=== PATIENT | female | born 1960 | race Caucasian/White ===

== ENCOUNTER 2022-02-09 13:00 | Inpatient (IN) | payer SELFPAY ==
[2022-02-09 14:02] LABS: #Basophils 0.1 thou/uL (0.0-0.2); #Eosinphils 0.2 thou/uL (0.0-0.7); #Monocytes 1.1 thou/uL (0.11-0.59); #Neutrophils 9.8 thou/uL (1.40-6.50); %Basophils 0.4 % (0.0-1.0); %Eosinophils 1.5 % (0.0-10.0); %Lymphocytes 26.4 % (21.0-51.0); %Monocytes 7.2 % (0.0-10.0); %Neutrophils 64.5 % (42.0-75.0); Hemoglobin 13.9 g/dL (12.0-16.0); Mean Corpuscular HGB CONC 32.2 g/dL (32.0-36.0); Mean Corpuscular Hemoglobin 32.2 pg (27.0-31.0); Mean Corpuscular Volume 99.8 fL (78.0-98.0); Mean Platelet Volume 7.8 fL (7.4-10.4); Platelet Count 331 thou/uL (130-400); RBC Distribution Width 12.9 % (11.5-14.5); Red Blood Cell (RBC) Count 4.31 mill/uL (4.20-5.40); White Blood Cell (WBC) Count 15.2 thou/uL (4.8-10.8)
[2022-02-09 14:21] LABS: ALT (SGPT) 18 U/L (8-55); AST (SGOT) 22 U/L (5-34); Albumin 3.6 g/dL (3.4-4.8); Alkaline Phosphatase 125 U/L (40-110); Anion Gap 14 mmol/L (10-20); BUN (Urea Nitrogen) 12 mg/dL (9.8-20.1); Bilirubin, Total 0.6 mg/dL (0.2-1.2); Calc. Creatinine Clearance 0 mL/min (70-130); Calcium 9.2 mg/dL (7.8-10.44); Carbon Dioxide 27 mmol/L (23-31); Chloride 100 mmol/L (98-107); Globulin 4.2 g/dL (2.4-3.5); Glucose 99 mg/dL (80-115); Lipase 16 U/L (8-78); Magnesium 1.8 mg/dL (1.6-2.6); Potassium 4.1 mmol/L (3.5-5.1); Protein, Total 7.8 g/dL (5.8-8.1); Sodium 137 mmol/L (136-145)
[2022-02-09 17:26] LABS: Bacteria/HPF 4+ HPF (None Seen); Bilirubin Negative (Negative); Blood, Urine Negative (Negative); Clarity Turbid (Clear); Glucose, Urine (Dipstick) Normal (Negative); Ketone, Urine Trace mg/dL (Negative); Leukocyte 250 Leu/uL (Negative); Nitrite 2+ (Negative); Protein, Urine (Dipstick) 10 mg/dL (Neg-Trace); RBC/HPF 0-3 HPF (0-3); Specific Gravity, Urine 1.019 (1.002-1.036); WBC/HPF 21-50 HPF (0-3)
[2022-02-09 22:15] VITALS: BMI 30.7
[2022-02-09] MEDS ORDERED: Aspirin 81 mg Enteric Coated Tablet PO SCH (23:30)
[2022-02-10 05:26] LABS: Cardiac Risk 5.6 (Less than 4.5)
[2022-02-10] MEDS: Aspirin 81 mg Enteric Coated Tablet PO SCH (09:54)
[2022-02-10] MEDS: PARoxetine 20 MG TAB PO SCH (09:55)
[2022-02-10] MEDS ORDERED: Iopamidol-370 76% 500 ML 1 ML ONE (11:53)
[2022-02-10 11:59] LABS: SARS-CoV-2 PCR by NAA Not Detected (NotDetected)
[2022-02-10] MEDS: cefTRIAXone\\ROCEPHIN 1 GM in Sodium Chloride 0.9% 100 ML IVPB SCH (15:26)
[2022-02-10] MEDS: Lorazepam 2 MG/ML VIAL SLOW IVP SCH (17:40)
[2022-02-10] MEDS: Dextrose 5 % And 0.9 % NaCl 1,000 ML IV SCH (18:09)
[2022-02-10] MEDS: Atorvastatin Calcium 40 MG TAB PO SCH (20:45)
[2022-02-10] MEDS: Melatonin 3 MG TAB PO PRN (20:45)
[2022-02-10] MEDS: Amlodipine 10 MG TAB PO SCH (20:46)
[2022-02-10] MEDS: Metoprolol Tartrate 50 MG TAB PO SCH (20:47)
[2022-02-11] MEDS: Dextrose 5 % And 0.9 % NaCl 1,000 ML IV SCH ×3 (04:17→18:28)
[2022-02-11 05:29] LABS: #Basophils 0.1 thou/uL (0.0-0.2); #Eosinphils 0.5 thou/uL (0.0-0.7); #Monocytes 1.1 thou/uL (0.11-0.59); #Neutrophils 6.4 thou/uL (1.40-6.50); %Basophils 1.2 % (0.0-1.0); %Eosinophils 4.3 % (0.0-10.0); %Lymphocytes 32.7 % (21.0-51.0); %Monocytes 9.2 % (0.0-10.0); %Neutrophils 52.7 % (42.0-75.0); Hemoglobin 14.3 g/dL (12.0-16.0); Mean Corpuscular HGB CONC 32.2 g/dL (32.0-36.0); Mean Corpuscular Volume 99.5 fL (78.0-98.0); Mean Platelet Volume 7.6 fL (7.4-10.4); Platelet Count 323 thou/uL (130-400); RBC Distribution Width 13.1 % (11.5-14.5); Red Blood Cell (RBC) Count 4.48 mill/uL (4.20-5.40); White Blood Cell (WBC) Count 12.1 thou/uL (4.8-10.8)
[2022-02-11 05:53] LABS: Anion Gap 13 mmol/L (10-20); BUN (Urea Nitrogen) 10 mg/dL (9.8-20.1); Calc. Creatinine Clearance 99 mL/min (70-130); Calcium 9.1 mg/dL (7.8-10.44); Carbon Dioxide 25 mmol/L (23-31); Chloride 105 mmol/L (98-107); Glucose 117 mg/dL (80-115); Potassium 3.8 mmol/L (3.5-5.1); Sodium 139 mmol/L (136-145)
[2022-02-11] MEDS: Levothyroxine Sodium 25 MCG TAB PO SCH (06:06)
[2022-02-11] MEDS: Aspirin 81 mg Enteric Coated Tablet PO SCH (09:16)
[2022-02-11] MEDS: PARoxetine 20 MG TAB PO SCH (09:16)
[2022-02-11] MEDS: Metoprolol Tartrate 50 MG TAB PO SCH (09:16)
[2022-02-11] MEDS: Lorazepam 2 MG/ML VIAL SLOW IVP SCH (13:14)
[2022-02-11] MEDS: cefTRIAXone\\ROCEPHIN 1 GM in Sodium Chloride 0.9% 100 ML IVPB SCH (15:25)
[2022-02-11] MEDS: Atorvastatin Calcium 40 MG TAB PO SCH (21:03)
[2022-02-11] MEDS: Senokot S 8.6-50 MG TAB PO SCH (21:03)
[2022-02-11] MEDS: Amlodipine 10 MG TAB PO SCH (21:04)
[2022-02-11] MEDS: Melatonin 3 MG TAB PO PRN (21:04)
[2022-02-11] MEDS: Heparin 5,000 UNITS/ML VIAL SC SCH (21:06)
[2022-02-11] MEDS: Metoprolol Tartrate 25 MG TAB PO SCH (21:07)
[2022-02-12 05:33] LABS: Hemoglobin A1c 5.5 % (4.0-6.0)
[2022-02-12 05:48] LABS: #Basophils 0.2 thou/uL (0.0-0.2); #Eosinphils 0.7 thou/uL (0.0-0.7); #Lymphocytes 4.6 thou/uL (1.20-3.40); #Neutrophils 4.5 thou/uL (1.40-6.50); %Basophils 1.7 % (0.0-1.0); %Eosinophils 6.8 % (0.0-10.0); %Neutrophils 40.5 % (42.0-75.0); Hemoglobin 12.6 g/dL (12.0-16.0); Mean Corpuscular HGB CONC 31.8 g/dL (32.0-36.0); Mean Corpuscular Hemoglobin 32.2 pg (27.0-31.0); Mean Platelet Volume 8.1 fL (7.4-10.4); Platelet Count 291 thou/uL (130-400); RBC Distribution Width 13.2 % (11.5-14.5); Red Blood Cell (RBC) Count 3.91 mill/uL (4.20-5.40)
[2022-02-12 05:53] LABS: Anion Gap 12 mmol/L (10-20); BUN (Urea Nitrogen) 7 mg/dL (9.8-20.1); Calc. Creatinine Clearance 104 mL/min (70-130); Calcium 8.7 mg/dL (7.8-10.44); Carbon Dioxide 24 mmol/L (23-31); Chloride 107 mmol/L (98-107); Glucose 91 mg/dL (80-115); Magnesium 1.9 mg/dL (1.6-2.6); Potassium 4.1 mmol/L (3.5-5.1); Sodium 139 mmol/L (136-145)
[2022-02-12] MEDS: Levothyroxine Sodium 25 MCG TAB PO SCH (06:16)
[2022-02-12] MEDS: Aspirin 81 mg Enteric Coated Tablet PO SCH (08:52)
[2022-02-12] MEDS: PARoxetine 20 MG TAB PO SCH (08:52)
[2022-02-12] MEDS: Senokot S 8.6-50 MG TAB PO SCH ×2 (08:52→20:05)
[2022-02-12] MEDS: Dextrose 5 % And 0.9 % NaCl 1,000 ML IV SCH ×2 (08:53→20:06)
[2022-02-12] MEDS: Heparin 5,000 UNITS/ML VIAL SC SCH ×2 (08:53→20:06)
[2022-02-12] MEDS: Metoprolol Tartrate 25 MG TAB PO SCH ×2 (08:53→20:05)
[2022-02-12] MEDS ORDERED: Polyethylene Glycol 3350 17 GM Packet PO SCH (09:00)
[2022-02-12] MEDS ORDERED: Folic Acid 1 MG TAB PO SCH (09:15)
[2022-02-12] MEDS ORDERED: Cyanocobalamin 1000 MCG/ML VIAL IM SCH (09:15)
[2022-02-12] MEDS ORDERED: Nicotine 14 MG PATCH TD PRN (10:48)
[2022-02-12] MEDS: cefTRIAXone\\ROCEPHIN 1 GM in Sodium Chloride 0.9% 100 ML IVPB SCH (14:54)
[2022-02-12] MEDS: Atorvastatin Calcium 40 MG TAB PO SCH (20:05)
[2022-02-12] MEDS: Polyethylene Glycol 3350 17 GM Packet PO SCH (20:06)
[2022-02-12] MEDS: Melatonin 3 MG TAB PO PRN (20:18)
[2022-02-12] MEDS ORDERED: Bisacodyl 10 MG SUPP PR SCH (21:00)
[2022-02-12] MEDS ORDERED: Amlodipine 5 MG TAB PO SCH (21:00)
[2022-02-13] MEDS: Levothyroxine Sodium 25 MCG TAB PO SCH (05:53)
[2022-02-13 07:56] VITALS: TEMP 97.5
[2022-02-13] MEDS: Senokot S 8.6-50 MG TAB PO SCH (08:53)
[2022-02-13] MEDS: PARoxetine 20 MG TAB PO SCH (08:53)
[2022-02-13] MEDS: Metoprolol Tartrate 25 MG TAB PO SCH (08:54)
[2022-02-13] MEDS: Polyethylene Glycol 3350 17 GM Packet PO SCH (08:54)
[2022-02-13] MEDS: Heparin 5,000 UNITS/ML VIAL SC SCH (08:54)
[2022-02-13] MEDS ORDERED: Aspirin 325 mg Enteric Coated Tablet PO SCH (09:00)
[2022-02-13] MEDS ORDERED: Clopidogrel Bisulfate 75 MG TAB PO SCH (09:00)
[2022-02-13] MEDS ORDERED: cefTRIAXone\\ROCEPHIN 1 GM in Sodium Chloride 0.9% 100 ML IVPB SCH (09:00)
[2022-02-13] MEDS ORDERED: Aspirin 81 mg Enteric Coated Tablet PO SCH (09:00)
[2022-02-13] MEDS ORDERED: Folic Acid 1 MG TAB PO SCH (09:00)
[2022-02-13] MEDS ORDERED: Cyanocobalamin (Vitamin B-12) 1,000 MCG TAB PO SCH (09:00)
[2022-02-13 10:46] VITALS: BP 121/66
== END 2022-02-13 14:11 | disposition home or self-care (01) | DRG 64 ==
LOC: ERS 13:00 → NEURO 17:11
PROVIDERS: ADMIT Internal Medicine; ATTEND Internal Medicine
PROC: 4A10X4Z Monitoring of Central Nervous Electrical Activity, External Approach (ICD-10-PCS; principal; 2022-02-10)
DX: I63.232 Cerebral infarction due to unspecified occlusion or stenosis of left carotid arteries (principal); I63.512 Cerebral infarction due to unspecified occlusion or stenosis of left middle cerebral artery; I63.532 Cerebral infarction due to unspecified occlusion or stenosis of left posterior cerebral artery; I69.354 Hemiplegia and hemiparesis following cerebral infarction affecting left non-dominant side; N30.00 Acute cystitis without hematuria; I10 Essential (primary) hypertension; E89.0 Postprocedural hypothyroidism; F17.210 Nicotine dependence, cigarettes, uncomplicated; E66.9 Obesity, unspecified; N18.30 Chronic kidney disease, stage 3 unspecified; I12.9 Hypertensive chronic kidney disease with stage 1 through stage 4 chronic kidney disease, or unspecified chronic kidney disease; E53.8 Deficiency of other specified B group vitamins; I08.1 Rheumatic disorders of both mitral and tricuspid valves; E78.5 Hyperlipidemia, unspecified; E04.1 Nontoxic single thyroid nodule; R53.81 Other malaise; Z20.822 Contact with and (suspected) exposure to COVID-19; R47.81 Slurred speech; Z90.81 Acquired absence of spleen; Z79.899 Other long term (current) drug therapy; Z68.30 Body mass index [BMI] 30.0-30.9, adult
CPT/HCPCS: 36415; 70450; 70496; 70498; 70553; 71045; 80048; 80053; 80061; 81003; 81015; 82607; 82746; 83036; 83605; 83690; 83735; 83880; 84484; 85025; 93005; 93306; 95712; 95819; 95957; J0696; J1644; J2060; J3420; J3490; J7042; Q9967; U0003; U0005

== ENCOUNTER 2023-04-20 10:58 | Inpatient (IN) | payer SELFPAY ==
[2023-04-20 11:50] LABS: #Basophils 0.1 thou/uL (0.0-0.2); #Eosinphils 0.1 thou/uL (0.0-0.7); #Monocytes 1.8 thou/uL (0.11-0.59); #Neutrophils 12.6 thou/uL (1.40-6.50); %Basophils 0.7 % (0.0-1.0); %Eosinophils 0.6 % (0.0-10.0); %Monocytes 9.3 % (0.0-10.0); %Neutrophils 65.7 % (42.0-75.0); Hemoglobin 12.4 g/dL (12.0-16.0); Mean Corpuscular HGB CONC 31.8 g/dL (32.0-36.0); Mean Corpuscular Hemoglobin 32.9 pg (27.0-31.0); Mean Corpuscular Volume 103.4 fl (78.0-98.0); Mean Platelet Volume 10.6 fL (7.4-10.4); Platelet Count 361 10x3/uL (130-400); RBC Distribution Width 14.5 % (11.5-14.5); Red Blood Cell (RBC) Count 3.77 mill/uL (4.20-5.40); White Blood Cell (WBC) Count 19.2 10x3/uL (4.8-10.8)
[2023-04-20 12:19] LABS: ALT (SGPT) 20 U/L (8-55); AST (SGOT) 32 U/L (5-34); Albumin 3.3 g/dL (3.4-4.8); Alkaline Phosphatase 213 U/L (40-110); Anion Gap 15 mmol/L (10-20); BUN (Urea Nitrogen) 18 mg/dL (9.8-20.1); Bilirubin, Total 0.9 mg/dL (0.2-1.2); Calc. Creatinine Clearance 0 mL/min (70-130); Calcium 9.4 mg/dL (7.8-10.44); Carbon Dioxide 22 mmol/L (23-31); Chloride 107 mmol/L (98-107); Estimated GFR 70; Globulin 4.9 g/dL (2.4-3.5); Glucose 123 mg/dL (80-115); Potassium 4.2 mmol/L (3.5-5.1); Protein, Total 8.2 g/dL (5.8-8.1); Sodium 140 mmol/L (136-145)
[2023-04-20 15:33] LABS: Bacteria/HPF None Seen HPF (None Seen); Bilirubin Negative (Negative); Blood, Urine Negative (Negative); CAUTI Indications for Culture Alt mental st,lethar; Clarity Clear (Clear); Glucose, Urine (Dipstick) Normal (Negative); Ketone, Urine Negative (Negative); Leukocyte 75 Leu/uL (Negative); Nitrite Negative (Negative); Protein, Urine (Dipstick) 30 mg/dL (Neg-Trace); RBC/HPF 0-3 HPF (0-3); Specific Gravity, Urine 1.026 (1.002-1.036); Squamous Epithelial 0-3 HPF (0-3)
[2023-04-20 15:37] LABS: Urine Culture Reflex Yes Yes
[2023-04-20] MEDS ORDERED: cefTRIAXone (ROCEPHIN) 1 GM VIAL ONE (16:24)
[2023-04-20] MEDS ORDERED: Acetaminophen 650 MG Suppository PR PRN (17:07)
[2023-04-20] MEDS ORDERED: Ondansetron PF 4 MG/2 ML Vial IVP PRN (17:07)
[2023-04-20] MEDS ORDERED: Aspirin 325 MG TAB ONE (17:16)
[2023-04-20 21:18] VITALS: BMI 30.1
[2023-04-20 22:43] LABS: SARS-CoV-2 NAA Rapid Test Not Detected (NotDetected)
[2023-04-20] MEDS ORDERED: Guaifenesin DM 100-10/5 ML UDCUP PO PRN (22:50)
[2023-04-20] MEDS ORDERED: Ipratropium/Albuterol 3 ML NEB NEB PRN (22:50)
[2023-04-21] MEDS: Famotidine/PF 20 mg/2ml Vial SLOW IVP SCH ×3 (01:23→20:53)
[2023-04-21] MEDS: Atorvastatin Calcium 40 MG TAB PO SCH ×2 (01:24→20:53)
[2023-04-21] MEDS: Melatonin 3 MG TAB PO PRN (01:24)
[2023-04-21] MEDS: Acetaminophen 325 MG TAB PO PRN ×4 (01:24→20:54)
[2023-04-21 05:10] LABS: Hemoglobin 11.2 g/dL (12.0-16.0); Mean Corpuscular HGB CONC 33.4 g/dL (32.0-36.0); Mean Corpuscular Hemoglobin 34.3 pg (27.0-31.0); Mean Corpuscular Volume 102.4 fl (78.0-98.0); Mean Platelet Volume 10.2 fL (7.4-10.4); Platelet Count 454 10x3/uL (130-400); RBC Distribution Width 14.6 % (11.5-14.5); Red Blood Cell (RBC) Count 3.27 mill/uL (4.20-5.40); White Blood Cell (WBC) Count 16.9 10x3/uL (4.8-10.8)
[2023-04-21 05:50] LABS: Manual Diff?? YES
[2023-04-21 05:51] LABS: Delete Auto Diff?? YES
[2023-04-21 06:16] LABS: Anion Gap 18 mmol/L (10-20); BUN (Urea Nitrogen) 16 mg/dL (9.8-20.1); Calc. Creatinine Clearance 106 mL/min (70-130); Calcium 9.1 mg/dL (7.8-10.44); Carbon Dioxide 19 mmol/L (23-31); Cardiac Risk 3.3 (Less than 4.5); Chloride 105 mmol/L (98-107); Cholesterol 154 mg/dl (< 200 Desired); Estimated GFR 85; Glucose 88 mg/dL (80-115); HDL Cholesterol 47 mg/dL (>60 Neg Risk); LDL Cholesterol, Calculated 92 mg/dL; Potassium 3.4 mmol/L (3.5-5.1); Sodium 139 mmol/L (136-145); Triglycerides 75 mg/dL (Less than 150)
[2023-04-21 06:38] LABS: CellaVision Operator ID lab.abc; Eosinophils 1 % (0-10); Lymphocytes 21 % (21-51); Macrocytosis SLIGHT = 6-15 cells HPF (0-5); Monocytes 9 % (0-10); Neutrophil 68 % (42-75); Platelet Adequacy Comment Platelets Normal; Poikilocytosis SLIGHT = 6-15 cells HPF (0-5); Total Cell Count 100
[2023-04-21] MEDS: busPIRone HCl 5 MG TAB PO SCH ×2 (09:11→20:54)
[2023-04-21] MEDS: Aspirin 81 mg Enteric Coated Tablet PO SCH (09:11)
[2023-04-21] MEDS: Folic Acid 1 MG TAB PO SCH (09:11)
[2023-04-21] MEDS: Clopidogrel Bisulfate 75 MG TAB PO SCH (09:11)
[2023-04-21] MEDS: PARoxetine 20 MG TAB PO SCH (09:11)
[2023-04-21] MEDS ORDERED: Iopamidol-370 76% 500 ML MDV (1 ML CHARGE) ONE (11:45)
[2023-04-21 13:10] LABS: Bacteria/HPF 3+ HPF (None Seen); Bilirubin Negative (Negative); Blood, Urine Negative (Negative); CAUTI Indications for Culture Fever or rigors; Clarity Turbid (Clear); Glucose, Urine (Dipstick) Normal (Negative); Ketone, Urine Negative (Negative); Leukocyte 500 Leu/uL (Negative); Nitrite Negative (Negative); Protein, Urine (Dipstick) 10 mg/dL (Neg-Trace); Specific Gravity, Urine 1.008 (1.002-1.036); Squamous Epithelial 0-3 HPF (0-3); WBC/HPF Greater than 50 HPF (0-3)
[2023-04-22] MEDS: Acetaminophen 325 MG TAB PO PRN ×2 (00:40→17:54)
[2023-04-22] MEDS: Melatonin 3 MG TAB PO PRN (00:40)
[2023-04-22] MEDS ORDERED: Fluticasone Propionate Nasal Spray 16 gm Bottle NASAL SCH (01:00)
[2023-04-22] MEDS: Levothyroxine Sodium 50 MCG TAB PO SCH (06:38)
[2023-04-22] MEDS ORDERED: Potassium Chloride 20 MEQ TAB PO SCH (09:15)
[2023-04-22] MEDS: busPIRone HCl 5 MG TAB PO SCH ×2 (09:55→21:57)
[2023-04-22] MEDS: PARoxetine 20 MG TAB PO SCH (09:55)
[2023-04-22] MEDS: Folic Acid 1 MG TAB PO SCH (09:55)
[2023-04-22] MEDS: Aspirin 81 mg Enteric Coated Tablet PO SCH (09:55)
[2023-04-22] MEDS: Clopidogrel Bisulfate 75 MG TAB PO SCH (09:56)
[2023-04-22] MEDS: Famotidine/PF 20 mg/2ml Vial SLOW IVP SCH ×2 (09:56→21:57)
[2023-04-22] MEDS: cefTRIAXone\\ROCEPHIN 1 GM in Sodium Chloride 0.9% 100 ML IVPB SCH (09:56)
[2023-04-22] MEDS: Fluticasone Propionate Nasal Spray 16 gm Bottle NASAL SCH (09:57)
[2023-04-22] MEDS: Atorvastatin Calcium 40 MG TAB PO SCH (21:57)
[2023-04-23 05:01] LABS: #Basophils 0.1 thou/uL (0.0-0.2); #Eosinphils 0.3 thou/uL (0.0-0.7); #Monocytes 1.3 thou/uL (0.11-0.59); #Neutrophils 11.1 thou/uL (1.40-6.50); %Basophils 0.9 % (0.0-1.0); %Eosinophils 2.1 % (0.0-10.0); %Lymphocytes 17.3 % (21.0-51.0); %Monocytes 8.2 % (0.0-10.0); %Neutrophils 70.4 % (42.0-75.0); Hemoglobin 9.7 g/dL (12.0-16.0); Mean Corpuscular HGB CONC 33.1 g/dL (32.0-36.0); Mean Corpuscular Hemoglobin 34.4 pg (27.0-31.0); Mean Corpuscular Volume 103.9 fl (78.0-98.0); Mean Platelet Volume 9.9 fL (7.4-10.4); Platelet Count 534 10x3/uL (130-400); RBC Distribution Width 14.2 % (11.5-14.5); Red Blood Cell (RBC) Count 2.82 mill/uL (4.20-5.40); White Blood Cell (WBC) Count 15.8 10x3/uL (4.8-10.8)
[2023-04-23 05:29] LABS: Anion Gap 15 mmol/L (10-20); BUN (Urea Nitrogen) 14 mg/dL (9.8-20.1); Calc. Creatinine Clearance 101 mL/min (70-130); Calcium 8.9 mg/dL (7.8-10.44); Carbon Dioxide 24 mmol/L (23-31); Chloride 104 mmol/L (98-107); Estimated GFR 80; Glucose 123 mg/dL (80-115); Potassium 3.6 mmol/L (3.5-5.1); Sodium 139 mmol/L (136-145)
[2023-04-23] MEDS: Levothyroxine Sodium 50 MCG TAB PO SCH (06:31)
[2023-04-23] MEDS: Folic Acid 1 MG TAB PO SCH (09:29)
[2023-04-23] MEDS: Amlodipine 5 MG TAB PO SCH (09:30)
[2023-04-23] MEDS: busPIRone HCl 5 MG TAB PO SCH ×2 (09:30→22:31)
[2023-04-23] MEDS: PARoxetine 20 MG TAB PO SCH (09:30)
[2023-04-23] MEDS: Aspirin 81 mg Enteric Coated Tablet PO SCH (09:30)
[2023-04-23] MEDS: Azithromycin 250 MG TAB PO SCH (09:30)
[2023-04-23] MEDS: Clopidogrel Bisulfate 75 MG TAB PO SCH (09:30)
[2023-04-23] MEDS: Famotidine/PF 20 mg/2ml Vial SLOW IVP SCH ×2 (09:32→22:30)
[2023-04-23] MEDS: cefTRIAXone\\ROCEPHIN 1 GM in Sodium Chloride 0.9% 100 ML IVPB SCH (09:32)
[2023-04-23] MEDS: Metoprolol Tartrate 50 MG TAB PO SCH ×2 (09:32→22:31)
[2023-04-23] MEDS: Loratadine 10 MG TAB PO SCH (15:25)
[2023-04-23] MEDS: Fluticasone Propionate Nasal Spray 16 gm Bottle NASAL SCH (15:25)
[2023-04-23 15:27] LABS: Campy jejuni + coli by PCR Negative (Negative); STEC Shiga Toxin 1+2 Negative (Negative); Salmonella spp. by PCR Negative (Negative); Shigella spp + EIEC by PCR Negative (Negative)
[2023-04-23] MEDS: Atorvastatin Calcium 40 MG TAB PO SCH (22:30)
[2023-04-23] MEDS: Acetaminophen 325 MG TAB PO PRN (22:31)
[2023-04-24] MEDS: Amlodipine 5 MG TAB PO SCH (06:33)
[2023-04-24] MEDS: Levothyroxine Sodium 50 MCG TAB PO SCH (06:33)
[2023-04-24] MEDS: cefTRIAXone\\ROCEPHIN 1 GM in Sodium Chloride 0.9% 100 ML IVPB SCH (08:21)
[2023-04-24] MEDS: busPIRone HCl 5 MG TAB PO SCH ×2 (08:22→21:17)
[2023-04-24] MEDS: PARoxetine 20 MG TAB PO SCH (08:22)
[2023-04-24] MEDS: Famotidine/PF 20 mg/2ml Vial SLOW IVP SCH ×2 (08:22→21:18)
[2023-04-24] MEDS: Azithromycin 250 MG TAB PO SCH (08:22)
[2023-04-24] MEDS: Loratadine 10 MG TAB PO SCH (08:23)
[2023-04-24] MEDS: Folic Acid 1 MG TAB PO SCH (08:23)
[2023-04-24] MEDS: Metoprolol Tartrate 50 MG TAB PO SCH ×2 (08:23→21:18)
[2023-04-24] MEDS: Aspirin 81 mg Enteric Coated Tablet PO SCH (08:36)
[2023-04-24] MEDS: Fluticasone Propionate Nasal Spray 16 gm Bottle NASAL SCH (08:37)
[2023-04-24] MEDS ORDERED: Protamine Sulfate 50 MG/5 ML VIAL ONE (09:21)
[2023-04-24] MEDS ORDERED: Heparin 5,000 UNITS/ML VIAL ONE (09:21)
[2023-04-24] MEDS ORDERED: Bupivacaine HCl 0.5%/Epinephrine 1:200,000/PF 30 ml Vial ONE (09:29)
[2023-04-24] MEDS ORDERED: fentaNYL 50 mcg/mL 1 mL Vial ONE (09:48)
[2023-04-24] MEDS ORDERED: Lidocaine 1% PF 5 ML VIAL ONE ×2 (09:58→10:37)
[2023-04-24] MEDS ORDERED: CEFAZOLIN 2 GM VIAL ONE (10:09)
[2023-04-24] MEDS ORDERED: Sodium Chloride 0.9% 0 ML ONE (10:09)
[2023-04-24] MEDS ORDERED: Rocuronium Bromide 10 MG/ML (10ML VIAL) ONE (10:37)
[2023-04-24] MEDS ORDERED: Ondansetron PF 4 MG/2 ML Vial ONE (10:37)
[2023-04-24] MEDS ORDERED: PROPOFOL 200 MG/20 ML VIAL ONE (10:37)
[2023-04-24] MEDS ORDERED: Glycopyrrolate 0.2 MG/ML 5 ML SYRINGE ONE (10:37)
[2023-04-24] MEDS ORDERED: NEOSTIGMINE 3 MG/3 ML SYR 3 MG/3 ML SYRINGE ONE (10:37)
[2023-04-24] MEDS ORDERED: Dexamethasone 20 MG/5 ML VIAL ONE (10:37)
[2023-04-24] MEDS ORDERED: Phenylephrine 10 MG/ML VIAL ONE (11:13)
[2023-04-24] MEDS ORDERED: Sodium Chloride 0.9% 1,000 ML IV SCH (12:11)
[2023-04-24] MEDS ORDERED: niCARdipine 25 MG in Sodium Chloride 0.9% 250 ML 250 ML IVPB PRN (12:11)
[2023-04-24] MEDS ORDERED: Ipratropium/Albuterol 3 ML NEB NEB PRN (12:11)
[2023-04-24] MEDS ORDERED: Ondansetron PF 4 MG/2 ML Vial IVP PRN (12:11)
[2023-04-24] MEDS ORDERED: fentaNYL 50 mcg/mL 1 mL Vial SLOW IVP PRN (12:11)
[2023-04-24] MEDS ORDERED: traMADol HCl 50 MG TAB PO PRN (12:11)
[2023-04-24] MEDS ORDERED: Phenylephrine 40 MG/NS 250 ML 40 MG in Premix Bag 1 BAG IVPB PRN (12:23)
[2023-04-24] MEDS: Ipratropium/Albuterol 3 ML NEB NEB SCH ×3 (15:58→23:19)
[2023-04-24] MEDS: Acetaminophen 325 MG TAB PO PRN (16:42)
[2023-04-24] MEDS: Atorvastatin Calcium 40 MG TAB PO SCH (21:18)
[2023-04-24] MEDS: Melatonin 3 MG TAB PO PRN (21:28)
[2023-04-25] MEDS: Levothyroxine Sodium 50 MCG TAB PO SCH (06:42)
[2023-04-25 07:13] LABS: #Basophils 0.1 thou/uL (0.0-0.2); #Monocytes 1.4 thou/uL (0.11-0.59); #Neutrophils 17.8 thou/uL (1.40-6.50); %Basophils 0.4 % (0.0-1.0); %Eosinophils 0.2 % (0.0-10.0); %Lymphocytes 13.3 % (21.0-51.0); %Monocytes 6.2 % (0.0-10.0); Hemoglobin 8.9 g/dL (12.0-16.0); Mean Corpuscular HGB CONC 31.7 g/dL (32.0-36.0); Mean Corpuscular Hemoglobin 33.1 pg (27.0-31.0); Mean Corpuscular Volume 104.5 fl (78.0-98.0); Mean Platelet Volume 10.8 fL (7.4-10.4); Platelet Count 450 10x3/uL (130-400); RBC Distribution Width 14.5 % (11.5-14.5); Red Blood Cell (RBC) Count 2.69 mill/uL (4.20-5.40); White Blood Cell (WBC) Count 22.5 10x3/uL (4.8-10.8)
[2023-04-25] MEDS: Ipratropium/Albuterol 3 ML NEB NEB SCH ×3 (07:32→18:14)
[2023-04-25 07:41] LABS: Anion Gap 14 mmol/L (10-20); BUN (Urea Nitrogen) 22 mg/dL (9.8-20.1); Calc. Creatinine Clearance 80 mL/min (70-130); Calcium 8.5 mg/dL (7.8-10.44); Carbon Dioxide 26 mmol/L (23-31); Chloride 103 mmol/L (98-107); Estimated GFR 61; Glucose 112 mg/dL (80-115); Potassium 4.6 mmol/L (3.5-5.1); Sodium 138 mmol/L (136-145)
[2023-04-25] MEDS: Famotidine/PF 20 mg/2ml Vial SLOW IVP SCH ×2 (08:34→19:47)
[2023-04-25] MEDS: cefTRIAXone\\ROCEPHIN 1 GM in Sodium Chloride 0.9% 100 ML IVPB SCH (08:34)
[2023-04-25] MEDS: Folic Acid 1 MG TAB PO SCH (08:34)
[2023-04-25] MEDS: Azithromycin 250 MG TAB PO SCH (08:34)
[2023-04-25] MEDS: Amlodipine 5 MG TAB PO SCH (08:34)
[2023-04-25] MEDS: Metoprolol Tartrate 50 MG TAB PO SCH ×3 (08:35→19:48)
[2023-04-25] MEDS: Aspirin 81 mg Enteric Coated Tablet PO SCH (08:35)
[2023-04-25] MEDS: PARoxetine 20 MG TAB PO SCH (08:35)
[2023-04-25] MEDS: Loratadine 10 MG TAB PO SCH (08:35)
[2023-04-25] MEDS: Acetaminophen 325 MG TAB PO PRN (08:36)
[2023-04-25] MEDS: Fluticasone Propionate Nasal Spray 16 gm Bottle NASAL SCH (08:39)
[2023-04-25] MEDS: busPIRone HCl 5 MG TAB PO SCH ×2 (09:55→19:46)
[2023-04-25] MEDS ORDERED: Piperacillin/Tazobactam 3.375 GM in Sodium Chloride 0.9% 100 ML IVPB SCH ×2 (15:45→16:00)
[2023-04-25] MEDS: Melatonin 3 MG TAB PO PRN (19:46)
[2023-04-25] MEDS: Atorvastatin Calcium 40 MG TAB PO SCH (19:46)
[2023-04-25] MEDS: Piperacillin/Tazobactam 3.375 GM in Sodium Chloride 0.9% 100 ML IVPB SCH (21:04)
[2023-04-26] MEDS: Ipratropium/Albuterol 3 ML NEB NEB SCH ×3 (01:09→13:29)
[2023-04-26] MEDS: Levothyroxine Sodium 50 MCG TAB PO SCH (05:51)
[2023-04-26] MEDS: Piperacillin/Tazobactam 3.375 GM in Sodium Chloride 0.9% 100 ML IVPB SCH ×2 (05:51→14:53)
[2023-04-26] MEDS: Amlodipine 5 MG TAB PO SCH (09:14)
[2023-04-26] MEDS: PARoxetine 20 MG TAB PO SCH (09:15)
[2023-04-26] MEDS: Famotidine/PF 20 mg/2ml Vial SLOW IVP SCH (09:15)
[2023-04-26] MEDS: busPIRone HCl 5 MG TAB PO SCH (09:15)
[2023-04-26] MEDS: Aspirin 81 mg Enteric Coated Tablet PO SCH (09:15)
[2023-04-26] MEDS: Loratadine 10 MG TAB PO SCH (09:15)
[2023-04-26] MEDS: Folic Acid 1 MG TAB PO SCH (09:16)
[2023-04-26] MEDS: Metoprolol Tartrate 50 MG TAB PO SCH (09:16)
[2023-04-26] MEDS: Fluticasone Propionate Nasal Spray 16 gm Bottle NASAL SCH (09:17)
[2023-04-26] MEDS: Acetaminophen 325 MG TAB PO PRN (10:32)
[2023-04-26 10:42] VITALS: BP 137/62
[2023-04-26 13:07] VITALS: TEMP 98.7
== END 2023-04-26 15:33 | DRG 37 ==
LOC: ERS 10:58 → 2SE 17:07 → OBSVTOIN 04-22 07:36 → CCU 04-24 11:50
PROVIDERS: ADMIT Internal Medicine; ATTEND Hospitalist
PROC: 03CL0ZZ Extirpation of Matter from Left Internal Carotid Artery, Open Approach (ICD-10-PCS; principal; 2023-04-24)
PROC: 03UL0KZ Supplement Left Internal Carotid Artery with Nonautologous Tissue Substitute, Open Approach (ICD-10-PCS; 2023-04-24)
DX: I65.22 Occlusion and stenosis of left carotid artery (principal); J69.0 Pneumonitis due to inhalation of food and vomit; N39.0 Urinary tract infection, site not specified; I69.352 Hemiplegia and hemiparesis following cerebral infarction affecting left dominant side; E78.5 Hyperlipidemia, unspecified; E03.9 Hypothyroidism, unspecified; F03.90 Unspecified dementia, unspecified severity, without behavioral disturbance, psychotic disturbance, mood disturbance, and anxiety; E07.89 Other specified disorders of thyroid; F17.210 Nicotine dependence, cigarettes, uncomplicated; R59.0 Localized enlarged lymph nodes; N18.30 Chronic kidney disease, stage 3 unspecified; I12.9 Hypertensive chronic kidney disease with stage 1 through stage 4 chronic kidney disease, or unspecified chronic kidney disease; Z20.822 Contact with and (suspected) exposure to COVID-19; Z99.3 Dependence on wheelchair; Z79.890 Hormone replacement therapy; Z79.899 Other long term (current) drug therapy; Z79.82 Long term (current) use of aspirin; Z98.890 Other specified postprocedural states; Z90.89 Acquired absence of other organs; Z82.49 Family history of ischemic heart disease and other diseases of the circulatory system; Z83.3 Family history of diabetes mellitus; I69.322 Dysarthria following cerebral infarction
CPT/HCPCS: 36415; 36416; 51701; 70450; 70496; 70498; 70551; 71045; 71250; 80048; 80053; 80061; 81001; 83630; 84145; 84484; 85025; 85652; 86140; 87040; 87077; 87086; 87149; 87324; 87449; 87505; 87798; 93005; 93306; 93880; 94640; 96372; 96374; 96375; 96376; C1768; G0378; J0696; J1100; J1642; J1644; J1650; J2370; J2405; J2543; J2704; J2720; J3010; J3490; J7050; J7620; Q9967; S0028; U0002

== ENCOUNTER 2024-10-10 17:34 | Inpatient (IN) | payer MEDICARE, MEDICAID ==
[~2024-10-10 17:34] MED LIST: Iopamidol-370 76% 500 ML MDV (1 ML CHARGE) ONE
[2024-10-10 17:59] LABS: #Basophils 0.04 10x3/uL (0.0-0.2); #Eosinophils Less than 0.03 10x3/uL (0.0-0.7); %Basophils 0.4 % (0.0-1.0); %Lymphocytes 21.7 % (21.0-51.0); %Monocytes 7.7 % (0.0-10.0); %Neutrophils 69.7 % (42.0-75.0); Hematocrit 39.1 % (36.0-47.0); Hemoglobin 12.4 g/dL (12.0-16.0); Mean Corpuscular HGB CONC 31.7 g/dL (32.0-36.0); Mean Corpuscular Hemoglobin 29.4 pg (27.0-31.0); Mean Corpuscular Volume 92.7 fL (78.0-98.0); Platelet Count 298 10x3/uL (130-400); RBC Distribution Width 16.1 % (11.5-14.5); Red Blood Cell (RBC) Count 4.22 mill/uL (4.20-5.40)
[2024-10-10 18:21] LABS: PTT 28.4 sec (22.9-36.1); Prothrombin Time 13.4 sec (12.0-14.7)
[2024-10-10 18:31] LABS: Troponin I 0.972 ng/mL (< 0.028)
[2024-10-10 18:48] LABS: ALT (SGPT) 22 U/L (8-55); AST (SGOT) 40 U/L (5-34); Albumin 2.8 g/dL (3.4-4.8); Alkaline Phosphatase 108 U/L (40-110); Anion Gap 15 mmol/L (10-20); BUN (Urea Nitrogen) 32 mg/dL (9.8-20.1); Bilirubin, Total 0.2 mg/dL (0.2-1.2); Calc. Creatinine Clearance 0 mL/min (70-130); Calcium 8.7 mg/dL (7.8-10.44); Carbon Dioxide 30 mmol/L (23-31); Chloride 93 mmol/L (98-107); Estimated GFR 40; Globulin 5.3 g/dL (2.4-3.5); Glucose 169 mg/dL (80-115); Potassium 4.4 mmol/L (3.5-5.1); Protein, Total 8.1 g/dL (5.8-8.1); Sodium 134 mmol/L (136-145)
[2024-10-10] MEDS ORDERED: Aspirin Chewable 81 MG TAB ONE (18:57)
[2024-10-10 20:27] LABS: PTT 24.1 sec (22.9-36.1)
[2024-10-10] MEDS ORDERED: Heparin 25,000 units/D5W 500 ML ONE (23:35)
[2024-10-11] MEDS ORDERED: Ondansetron ODT 4 MG TAB PO PRN (00:03)
[2024-10-11] MEDS ORDERED: Ondansetron PF 4 MG/2 ML Vial IVP PRN (00:03)
[2024-10-11 01:06] LABS: Critical Call Chem Troponin I RESULT DECREASING; Troponin I 0.773 ng/mL (< 0.028)
[2024-10-11] MEDS: Ipratropium/Albuterol 3 ML NEB NEB SCH (01:19)
[2024-10-11 02:27] LABS: Bacteria/HPF None Seen HPF (None Seen); Bilirubin Negative (Negative); Blood, Urine Negative (Negative); CAUTI Indications for Culture Alt mental st,lethar; Clarity Clear (Clear); Glucose, Urine (Dipstick) Normal (Negative); Ketone, Urine Negative (Negative); Leukocyte Negative Leu/uL (Negative); Nitrite Negative (Negative); Protein, Urine (Dipstick) 30 mg/dL (Neg-Trace); RBC/HPF 0-3 HPF (0-3); WBC/HPF 0-3 HPF (0-3)
[2024-10-11 02:28] LABS: Specific Gravity, Urine 1.053 (1.002-1.036)
[2024-10-11 02:29] LABS: Urine Culture Reflex No No
[2024-10-11 02:33] LABS: Amphetamine Not Detected (NotDetected); Barbiturates Screen Not Detected (NotDetected); Benzodiazepine Screen Not Detected (NotDetected); Cocaine Metabolite Screen Not Detected (NotDetected); Methadone Not Detected (NotDetected); Methamphetamine Not Detected (NotDetected); Opiate Screen Not Detected (NotDetected); Oxycodone Screen Not Detected (NotDetected); Phencyclidine (PCP) Not Detected (NotDetected); THC/Cannabinoid Screen Not Detected (NotDetected); Tricyclic Screen Not Detected (NotDetected)
[2024-10-11] MEDS: Doxycycline 100 MG in Sodium Chloride 0.9% 100 ML IVPB SCH (02:52)
[2024-10-11] MEDS: methylPREDNISolone Sod Succ 40 MG VIAL IVP SCH (02:52)
[2024-10-11 03:43] LABS: #Basophils 0.05 10x3/uL (0.0-0.2); #Eosinophils Less than 0.03 10x3/uL (0.0-0.7); %Basophils 0.4 % (0.0-1.0); %Eosinophils 0.1 % (0.0-10.0); %Lymphocytes 22.5 % (21.0-51.0); %Neutrophils 64.6 % (42.0-75.0); Hematocrit 41.2 % (36.0-47.0); Hemoglobin 12.8 g/dL (12.0-16.0); Mean Corpuscular HGB CONC 31.1 g/dL (32.0-36.0); Mean Corpuscular Hemoglobin 29.4 pg (27.0-31.0); Mean Corpuscular Volume 94.7 fL (78.0-98.0); Mean Platelet Volume 10.1 fL (7.4-10.4); Platelet Count 243 10x3/uL (130-400); RBC Distribution Width 16.5 % (11.5-14.5); Red Blood Cell (RBC) Count 4.35 mill/uL (4.20-5.40)
[2024-10-11 03:59] LABS: ALT (SGPT) 19 U/L (8-55); AST (SGOT) 30 U/L (5-34); Albumin 2.8 g/dL (3.4-4.8); Alkaline Phosphatase 101 U/L (40-110); Anion Gap 17 mmol/L (10-20); BUN (Urea Nitrogen) 30 mg/dL (9.8-20.1); Bilirubin, Total 0.3 mg/dL (0.2-1.2); Calc. Creatinine Clearance 89 mL/min (70-130); Calcium 8.6 mg/dL (7.8-10.44); Carbon Dioxide 26 mmol/L (23-31); Chloride 96 mmol/L (98-107); Estimated GFR 51; Globulin 5.2 g/dL (2.4-3.5); Glucose 100 mg/dL (80-115); Potassium 4.1 mmol/L (3.5-5.1); Sodium 135 mmol/L (136-145)
[2024-10-11] MEDS: Levothyroxine Sodium 50 MCG TAB PO SCH (05:13)
[2024-10-11] MEDS ORDERED: Heparin 5,000 UNITS/ML VIAL SC SCH (09:00)
[2024-10-11 09:05] LABS: Critical Call Chem Troponin I DOWN
[2024-10-11 09:06] LABS: Troponin I 0.799 ng/mL (< 0.028)
[2024-10-11] MEDS: Pantoprazole 40 MG VIAL IVP SCH (11:39)
[2024-10-11] MEDS: PARoxetine 20 MG TAB PO SCH (11:39)
[2024-10-11] MEDS: Amlodipine 5 MG TAB PO SCH (11:39)
[2024-10-11] MEDS: Clopidogrel Bisulfate 75 MG TAB PO SCH (11:39)
[2024-10-11] MEDS: Folic Acid 1 MG TAB PO SCH (11:40)
[2024-10-11] MEDS: Aspirin 325 mg Enteric Coated Tablet PO SCH (11:40)
[2024-10-11] MEDS: Enoxaparin 120 MG/0.8 ML SYRINGE SC SCH ×2 (11:49→20:46)
[2024-10-11] MEDS ORDERED: Benzonatate 100 MG CAP PO PRN (14:24)
[2024-10-11 19:56] VITALS: BMI 38.9
[2024-10-11] MEDS: Ipratropium/Albuterol 3 ML NEB NEB PRN (20:00)
[2024-10-11] MEDS: Melatonin 3 MG TAB PO PRN (20:46)
[2024-10-11] MEDS: Sodium Chloride 0.9% 100 ML ONE (23:29)
[2024-10-11] MEDS: Doxycycline 100 MG VIAL ONE (23:29)
[2024-10-12] MEDS: Aspirin 81 mg Enteric Coated Tablet PO SCH (10:53)
[2024-10-12 11:52] VITALS: BMI 39.1
[2024-10-12] MEDS: Enoxaparin 40 MG (0.4 mL) SYRINGE SC SCH (21:06)
[2024-10-12] MEDS: Acetaminophen 325 MG TAB PO PRN (21:08)
[2024-10-13 15:44] VITALS: BP 170/90; TEMP 97.9
[2024-10-13] MEDS ORDERED: Atorvastatin Calcium 40 MG TAB PO SCH (21:00)
== END 2024-10-13 15:30 | disposition home or self-care (01) | DRG 70 ==
LOC: ERS 17:34 → 2SE 10-11 → OBSVTOIN 10-11 10:02
PROVIDERS: ADMIT Internal Medicine; ATTEND Internal Medicine
DX: G93.41 Metabolic encephalopathy (principal); I21.A1 Myocardial infarction type 2; J96.01 Acute respiratory failure with hypoxia; I69.354 Hemiplegia and hemiparesis following cerebral infarction affecting left non-dominant side; N17.9 Acute kidney failure, unspecified; E66.01 Morbid (severe) obesity due to excess calories; I50.9 Heart failure, unspecified; F32.A Depression, unspecified; E89.0 Postprocedural hypothyroidism; F03.90 Unspecified dementia, unspecified severity, without behavioral disturbance, psychotic disturbance, mood disturbance, and anxiety; Z87.891 Personal history of nicotine dependence; Z68.39 Body mass index [BMI] 39.0-39.9, adult; Z79.899 Other long term (current) drug therapy; Z79.02 Long term (current) use of antithrombotics/antiplatelets; Z79.890 Hormone replacement therapy; I11.0 Hypertensive heart disease with heart failure
CPT/HCPCS: 36415; 70450; 70496; 70498; 71045; 71275; 80053; 80306; 80307; 81001; 83880; 84145; 84484; 85025; 85610; 85730; 87040; 93005; 93306; 94640; 96361; 96365; 96375; G0378; J1644; J1650; J2470; J2919; J7620; Q9967

== ENCOUNTER 2025-03-17 14:11 | Inpatient (IN) | payer MEDICARE, MEDICAID ==
[2025-03-17] MEDS ORDERED: Pantoprazole 40 MG VIAL ONE (16:37)
[2025-03-17 16:47] LABS: #Basophils 0.06 10x3/uL (0.0-0.2); #Eosinophils 0.28 10x3/uL (0.0-0.7); #Monocytes 0.87 10x3/uL (0.11-0.59); #Neutrophils 5.40 10x3/uL (1.40-6.50); %Basophils 0.6 % (0.0-1.0); %Eosinophils 3.0 % (0.0-10.0); %Lymphocytes 28.6 % (21.0-51.0); %Monocytes 9.4 % (0.0-10.0); %Neutrophils 58.1 % (42.0-75.0); Hematocrit 33.8 % (36.0-47.0); Hemoglobin 11.6 g/dL (12.0-16.0); Mean Corpuscular Hemoglobin 31.0 pg (27.0-31.0); Mean Corpuscular Volume 90.4 fL (78.0-98.0); Platelet Count 285 10x3/uL (130-400); Red Blood Cell (RBC) Count 3.74 mill/uL (4.20-5.40); White Blood Cell (WBC) Count 9.30 10x3/uL (4.8-10.8)
[2025-03-17 17:04] LABS: INR-International Normal Ratio 1.1; Prothrombin Time 13.9 sec (12.0-14.7)
[2025-03-17 17:05] LABS: PTT 27.7 sec (22.9-36.1)
[2025-03-17 17:07] LABS: ALT (SGPT) 13 U/L (Less than 34); AST (SGOT) 26 U/L (11-34); Albumin 1.7 g/dL (3.1-4.5); Alkaline Phosphatase 156 U/L (40-110); Anion Gap 8 mmol/L (10-20); BUN (Urea Nitrogen) 10 mg/dL (9.8-20.1); Bilirubin, Total 0.3 mg/dL (0.3-1.2); Calc. Creatinine Clearance 0 mL/min (70-130); Calcium 7.6 mg/dL (7.8-10.44); Carbon Dioxide 38 mmol/L (23-31); Chloride 96 mmol/L (98-107); Globulin 4.3 g/dL (2.4-3.5); Glucose 126 mg/dL (80-115); Potassium 3.1 mmol/L (3.5-5.1); Sodium 139 mmol/L (136-145)
[2025-03-17 18:47] LABS: Troponin I 0.043 ng/mL (< 0.028)
[2025-03-17] MEDS ORDERED: Furosemide 40 MG (4 mL) VIAL ONE (19:52)
[2025-03-17 23:52] VITALS: BMI 38.8
[2025-03-18 00:09] LABS: Troponin I 0.031 ng/mL (< 0.028)
[2025-03-18] MEDS ORDERED: Albuterol 2.5 MG (3 mL) NEB EZPAP PRN (01:32)
[2025-03-18] MEDS ORDERED: Calcium Carbonate 500 MG ChewTAB PO PRN (01:33)
[2025-03-18] MEDS ORDERED: Ondansetron PF 4 MG/2 ML Vial IVP PRN (01:33)
[2025-03-18 01:38] LABS: Troponin I 0.040 ng/mL (< 0.028)
[2025-03-18] MEDS ORDERED: Electrolyte Replacement Protocol 1 EACH FS SCH (01:45)
[2025-03-18] MEDS ORDERED: MENTHOL TOP PRN (01:53)
[2025-03-18] MEDS: Ciprofloxacin Lactate/D5W 400 MG in Premix 1 BAG IVPB SCH (02:54)
[2025-03-18 05:11] LABS: #Basophils 0.05 10x3/uL (0.0-0.2); #Eosinophils 0.34 10x3/uL (0.0-0.7); #Monocytes 0.82 10x3/uL (0.11-0.59); #Neutrophils 4.33 10x3/uL (1.40-6.50); %Basophils 0.6 % (0.0-1.0); %Eosinophils 3.8 % (0.0-10.0); %Lymphocytes 38.2 % (21.0-51.0); %Monocytes 9.1 % (0.0-10.0); %Neutrophils 48.0 % (42.0-75.0); Hematocrit 36.7 % (36.0-47.0); Hemoglobin 12.5 g/dL (12.0-16.0); Mean Corpuscular Hemoglobin 30.2 pg (27.0-31.0); Mean Corpuscular Volume 88.6 fL (78.0-98.0); Platelet Count 275 10x3/uL (130-400); Red Blood Cell (RBC) Count 4.14 mill/uL (4.20-5.40); White Blood Cell (WBC) Count 9.02 10x3/uL (4.8-10.8)
[2025-03-18 05:34] LABS: ALT (SGPT) 15 U/L (Less than 34); AST (SGOT) 23 U/L (11-34); Albumin 1.8 g/dL (3.1-4.5); Alkaline Phosphatase 159 U/L (40-110); Anion Gap 12 mmol/L (10-20); BUN (Urea Nitrogen) 9 mg/dL (9.8-20.1); Bilirubin, Total 0.3 mg/dL (0.3-1.2); Calc. Creatinine Clearance 128 mL/min (70-130); Calcium 7.7 mg/dL (7.8-10.44); Carbon Dioxide 33 mmol/L (23-31); Chloride 97 mmol/L (98-107); Globulin 4.5 g/dL (2.4-3.5); Glucose 108 mg/dL (80-115); Magnesium 1.7 mg/dL (1.6-2.6); Potassium 3.1 mmol/L (3.5-5.1); Sodium 139 mmol/L (136-145)
[2025-03-18] MEDS: Potassium Bicarbonate/Cit Ac 20 MEQ TAB PO SCH (06:07)
[2025-03-18] MEDS: Magnesium 2 GM/50 ML(in water) 2 GM in Premix 1 BAG IVPB SCH (09:09)
[2025-03-18] MEDS: Folic Acid 1 MG TAB PO SCH (09:10)
[2025-03-18] MEDS: metroNIDAZOLE 500 MG TAB PO SCH (09:10)
[2025-03-18] MEDS: PARoxetine 20 MG TAB PO SCH (09:10)
[2025-03-18] MEDS: Furosemide 40 MG (4 mL) VIAL SLOW IVP SCH (09:26)
[2025-03-18] MEDS: Acetaminophen 325 MG TAB PO PRN (13:26)
[2025-03-18] MEDS: Melatonin 3 MG TAB PO PRN (20:42)
[2025-03-19 04:24] LABS: #Basophils 0.05 10x3/uL (0.0-0.2); #Eosinophils 0.22 10x3/uL (0.0-0.7); #Monocytes 1.35 10x3/uL (0.11-0.59); #Neutrophils 5.18 10x3/uL (1.40-6.50); %Basophils 0.5 % (0.0-1.0); %Eosinophils 2.1 % (0.0-10.0); %Lymphocytes 35.4 % (21.0-51.0); %Monocytes 12.7 % (0.0-10.0); %Neutrophils 48.9 % (42.0-75.0); Hematocrit 31.5 % (36.0-47.0); Hemoglobin 11.1 g/dL (12.0-16.0); Mean Corpuscular Hemoglobin 30.6 pg (27.0-31.0); Mean Corpuscular Volume 86.8 fL (78.0-98.0); Platelet Count 267 10x3/uL (130-400); Red Blood Cell (RBC) Count 3.63 mill/uL (4.20-5.40); White Blood Cell (WBC) Count 10.59 10x3/uL (4.8-10.8)
[2025-03-19 04:47] LABS: Anion Gap 13 mmol/L (10-20); BUN (Urea Nitrogen) 9 mg/dL (9.8-20.1); Calc. Creatinine Clearance 102 mL/min (70-130); Calcium 7.5 mg/dL (7.8-10.44); Carbon Dioxide 34 mmol/L (23-31); Chloride 93 mmol/L (98-107); Glucose 90 mg/dL (80-115); Magnesium 1.8 mg/dL (1.6-2.6); Potassium 3.8 mmol/L (3.5-5.1); Sodium 136 mmol/L (136-145)
[2025-03-19] MEDS: Magnesium 2 GM/50 ML(in water) 2 GM in Premix 1 BAG IVPB SCH (07:55)
[2025-03-19] MEDS ORDERED: Iopamidol-370 76% 500 ML MDV (1 ML CHARGE) ONE (11:29)
[2025-03-19] MEDS: Furosemide 40 MG TAB PO SCH (11:57)
[2025-03-19 14:11] LABS: #Basophils 0.05 10x3/uL (0.0-0.2); #Eosinophils 0.03 10x3/uL (0.0-0.7); #Monocytes 1.20 10x3/uL (0.11-0.59); #Neutrophils 8.07 10x3/uL (1.40-6.50); %Basophils 0.5 % (0.0-1.0); %Eosinophils 0.3 % (0.0-10.0); %Lymphocytes 14.3 % (21.0-51.0); %Monocytes 10.9 % (0.0-10.0); %Neutrophils 73.4 % (42.0-75.0); Hematocrit 31.5 % (36.0-47.0); Hemoglobin 11.1 g/dL (12.0-16.0); Mean Corpuscular Hemoglobin 30.7 pg (27.0-31.0); Mean Corpuscular Volume 87.0 fL (78.0-98.0); Platelet Count 264 10x3/uL (130-400); Red Blood Cell (RBC) Count 3.62 mill/uL (4.20-5.40); White Blood Cell (WBC) Count 10.99 10x3/uL (4.8-10.8)
[2025-03-19 14:17] LABS: Anion Gap 14 mmol/L (10-20); BUN (Urea Nitrogen) 10 mg/dL (9.8-20.1); Calc. Creatinine Clearance 95 mL/min (70-130); Calcium 7.6 mg/dL (7.8-10.44); Carbon Dioxide 32 mmol/L (23-31); Chloride 93 mmol/L (98-107); Glucose 112 mg/dL (80-115); Potassium 3.9 mmol/L (3.5-5.1); Sodium 135 mmol/L (136-145)
[2025-03-19 14:19] LABS: INR-International Normal Ratio 1.0; Prothrombin Time 13.6 sec (12.0-14.7)
[2025-03-19 14:20] LABS: PTT 28.1 sec (22.9-36.1)
[2025-03-19 14:23] LABS: D-Dimer Test 0.5 mcg/mL (0.27-0.43)
[2025-03-20 05:28] LABS: Anion Gap 12 mmol/L (10-20); BUN (Urea Nitrogen) 11 mg/dL (9.8-20.1); Calc. Creatinine Clearance 103 mL/min (70-130); Calcium 7.3 mg/dL (7.8-10.44); Carbon Dioxide 33 mmol/L (23-31); Chloride 94 mmol/L (98-107); Glucose 109 mg/dL (80-115); Magnesium 2.2 mg/dL (1.6-2.6); Potassium 3.6 mmol/L (3.5-5.1); Sodium 135 mmol/L (136-145)
[2025-03-20 06:17] LABS: #Basophils 0.08 10x3/uL (0.0-0.2); #Eosinophils 0.15 10x3/uL (0.0-0.7); #Monocytes 1.11 10x3/uL (0.11-0.59); #Neutrophils 5.47 10x3/uL (1.40-6.50); %Basophils 0.8 % (0.0-1.0); %Eosinophils 1.5 % (0.0-10.0); %Lymphocytes 32.7 % (21.0-51.0); %Monocytes 10.9 % (0.0-10.0); %Neutrophils 53.6 % (42.0-75.0); Hematocrit 27.2 % (36.0-47.0); Hemoglobin 9.6 g/dL (12.0-16.0); Mean Corpuscular Hemoglobin 31.1 pg (27.0-31.0); Mean Corpuscular Volume 88.0 fL (78.0-98.0); Platelet Count 240 10x3/uL (130-400); Red Blood Cell (RBC) Count 3.09 mill/uL (4.20-5.40); White Blood Cell (WBC) Count 10.20 10x3/uL (4.8-10.8)
[2025-03-20 12:43] LABS: Hemoglobin 10.7 g/dL (12.0-16.0)
[2025-03-21 04:46] LABS: #Basophils 0.07 10x3/uL (0.0-0.2); #Eosinophils 0.20 10x3/uL (0.0-0.7); #Monocytes 1.15 10x3/uL (0.11-0.59); #Neutrophils 5.14 10x3/uL (1.40-6.50); %Basophils 0.7 % (0.0-1.0); %Eosinophils 2.1 % (0.0-10.0); %Lymphocytes 30.1 % (21.0-51.0); %Monocytes 12.1 % (0.0-10.0); %Neutrophils 54.3 % (42.0-75.0); Hematocrit 27.9 % (36.0-47.0); Hemoglobin 9.7 g/dL (12.0-16.0); Mean Corpuscular Hemoglobin 30.8 pg (27.0-31.0); Mean Corpuscular Volume 88.6 fL (78.0-98.0); Platelet Count 267 10x3/uL (130-400); Red Blood Cell (RBC) Count 3.15 mill/uL (4.20-5.40); White Blood Cell (WBC) Count 9.48 10x3/uL (4.8-10.8)
[2025-03-21 05:51] LABS: Anion Gap 11 mmol/L (10-20); BUN (Urea Nitrogen) 8 mg/dL (9.8-20.1); Calc. Creatinine Clearance 115 mL/min (70-130); Calcium 7.5 mg/dL (7.8-10.44); Carbon Dioxide 32 mmol/L (23-31); Chloride 94 mmol/L (98-107); Glucose 90 mg/dL (80-115); Magnesium 2.1 mg/dL (1.6-2.6); Potassium 3.4 mmol/L (3.5-5.1); Sodium 134 mmol/L (136-145)
[2025-03-21] MEDS: Albumin 25% 25 GM (100 mL) BOT IVPB SCH ×2 (13:53→19:31)
[2025-03-22 04:55] LABS: #Basophils 0.08 10x3/uL (0.0-0.2); #Eosinophils 0.55 10x3/uL (0.0-0.7); #Monocytes 1.37 10x3/uL (0.11-0.59); #Neutrophils 7.48 10x3/uL (1.40-6.50); %Basophils 0.6 % (0.0-1.0); %Eosinophils 4.2 % (0.0-10.0); %Lymphocytes 27.1 % (21.0-51.0); %Monocytes 10.4 % (0.0-10.0); %Neutrophils 56.9 % (42.0-75.0); Hematocrit 26.0 % (36.0-47.0); Hemoglobin 8.8 g/dL (12.0-16.0); Mean Corpuscular Hemoglobin 30.7 pg (27.0-31.0); Mean Corpuscular Volume 90.6 fL (78.0-98.0); Platelet Count 231 10x3/uL (130-400); Red Blood Cell (RBC) Count 2.87 mill/uL (4.20-5.40); White Blood Cell (WBC) Count 13.15 10x3/uL (4.8-10.8)
[2025-03-22 07:17] LABS: Anion Gap 14 mmol/L (10-20); BUN (Urea Nitrogen) 6 mg/dL (9.8-20.1); Calc. Creatinine Clearance 133 mL/min (70-130); Calcium 8.3 mg/dL (7.8-10.44); Carbon Dioxide 28 mmol/L (23-31); Chloride 100 mmol/L (98-107); Glucose 93 mg/dL (80-115); Magnesium 2.1 mg/dL (1.6-2.6); Potassium 4.0 mmol/L (3.5-5.1); Sodium 138 mmol/L (136-145)
[2025-03-22] MEDS: Furosemide 20 MG (2 mL) VIAL SLOW IVP SCH ×2 (10:43→18:38)
[2025-03-22] MEDS ORDERED: Vancomycin 1 GM in Premix 1 BAG IVPB SCH (12:00)
[2025-03-22] MEDS: Vancomycin (BATCH) 2.5 GM in Premix 1 BAG IVPB SCH (14:41)
[2025-03-22] MEDS: Vancomycin 1 GM in Premix 1 BAG IVPB SCH (22:01)
[2025-03-23 05:32] LABS: #Basophils 0.08 10x3/uL (0.0-0.2); #Eosinophils 0.18 10x3/uL (0.0-0.7); #Monocytes 1.36 10x3/uL (0.11-0.59); #Neutrophils 9.79 10x3/uL (1.40-6.50); %Basophils 0.6 % (0.0-1.0); %Eosinophils 1.3 % (0.0-10.0); %Lymphocytes 19.7 % (21.0-51.0); %Monocytes 9.5 % (0.0-10.0); %Neutrophils 68.0 % (42.0-75.0); Hematocrit 25.8 % (36.0-47.0); Hemoglobin 9.2 g/dL (12.0-16.0); Mean Corpuscular Hemoglobin 31.2 pg (27.0-31.0); Mean Corpuscular Volume 87.5 fL (78.0-98.0); Platelet Count 236 10x3/uL (130-400); Red Blood Cell (RBC) Count 2.95 mill/uL (4.20-5.40); White Blood Cell (WBC) Count 14.37 10x3/uL (4.8-10.8)
[2025-03-23 05:55] LABS: Vancomycin, Random 35.3 ug/mL (See Comment)
[2025-03-23 06:00] LABS: Anion Gap 10 mmol/L (10-20); BUN (Urea Nitrogen) 8 mg/dL (9.8-20.1); Calc. Creatinine Clearance 149 mL/min (70-130); Calcium 7.9 mg/dL (7.8-10.44); Carbon Dioxide 32 mmol/L (23-31); Chloride 101 mmol/L (98-107); Glucose 103 mg/dL (80-115); Potassium 3.4 mmol/L (3.5-5.1); Sodium 140 mmol/L (136-145)
[2025-03-23] MEDS ORDERED: Furosemide 20 MG (2 mL) VIAL SLOW IVP SCH (09:00)
[2025-03-23] MEDS: Furosemide 20 MG (2 mL) VIAL SLOW IVP SCH ×2 (13:54→21:33)
[2025-03-23 23:31] VITALS: BMI 38.7
[2025-03-24 04:33] LABS: #Basophils 0.11 10x3/uL (0.0-0.2); #Eosinophils 0.26 10x3/uL (0.0-0.7); #Monocytes 1.08 10x3/uL (0.11-0.59); #Neutrophils 7.35 10x3/uL (1.40-6.50); %Basophils 1.0 % (0.0-1.0); %Eosinophils 2.3 % (0.0-10.0); %Lymphocytes 23.0 % (21.0-51.0); %Monocytes 9.4 % (0.0-10.0); %Neutrophils 63.8 % (42.0-75.0); Hematocrit 27.7 % (36.0-47.0); Hemoglobin 9.5 g/dL (12.0-16.0); Mean Corpuscular Hemoglobin 31.3 pg (27.0-31.0); Mean Corpuscular Volume 91.1 fL (78.0-98.0); Platelet Count 232 10x3/uL (130-400); Red Blood Cell (RBC) Count 3.04 mill/uL (4.20-5.40); White Blood Cell (WBC) Count 11.51 10x3/uL (4.8-10.8)
[2025-03-24 05:04] LABS: Anion Gap 13 mmol/L (10-20); BUN (Urea Nitrogen) 10 mg/dL (9.8-20.1); Calc. Creatinine Clearance 144 mL/min (70-130); Calcium 8.0 mg/dL (7.8-10.44); Carbon Dioxide 32 mmol/L (23-31); Chloride 99 mmol/L (98-107); Glucose 94 mg/dL (80-115); Potassium 3.7 mmol/L (3.5-5.1); Sodium 140 mmol/L (136-145)
[2025-03-25 04:26] LABS: #Basophils 0.10 10x3/uL (0.0-0.2); #Eosinophils 0.43 10x3/uL (0.0-0.7); #Monocytes 1.15 10x3/uL (0.11-0.59); #Neutrophils 5.86 10x3/uL (1.40-6.50); %Basophils 1.0 % (0.0-1.0); %Eosinophils 4.2 % (0.0-10.0); %Lymphocytes 25.1 % (21.0-51.0); %Monocytes 11.3 % (0.0-10.0); %Neutrophils 57.6 % (42.0-75.0); Hematocrit 27.5 % (36.0-47.0); Hemoglobin 9.2 g/dL (12.0-16.0); Mean Corpuscular Hemoglobin 30.0 pg (27.0-31.0); Mean Corpuscular Volume 89.6 fL (78.0-98.0); Platelet Count 223 10x3/uL (130-400); Red Blood Cell (RBC) Count 3.07 mill/uL (4.20-5.40); White Blood Cell (WBC) Count 10.17 10x3/uL (4.8-10.8)
[2025-03-25 05:56] LABS: Vancomycin, Random 33.4 ug/mL (See Comment)
[2025-03-25 05:57] LABS: Anion Gap 14 mmol/L (10-20); BUN (Urea Nitrogen) 13 mg/dL (9.8-20.1); Calc. Creatinine Clearance 155 mL/min (70-130); Calcium 8.0 mg/dL (7.8-10.44); Carbon Dioxide 31 mmol/L (23-31); Chloride 98 mmol/L (98-107); Glucose 88 mg/dL (80-115); Potassium 3.6 mmol/L (3.5-5.1); Sodium 139 mmol/L (136-145)
[2025-03-25 16:14] VITALS: BP 121/74; TEMP 98.4
== END 2025-03-25 17:35 | DRG 177 ==
LOC: ERS 14:11 → 2NO 22:05
PROVIDERS: ADMIT Student in an Organized Health Care Education/Training Program; ATTEND Family Medicine
PROC: 30233J1 Transfusion of Nonautologous Serum Albumin into Peripheral Vein, Percutaneous Approach (ICD-10-PCS; principal; 2025-03-21)
DX: J15.212 Pneumonia due to Methicillin resistant Staphylococcus aureus (principal); I21.4 Non-ST elevation (NSTEMI) myocardial infarction; I50.33 Acute on chronic diastolic (congestive) heart failure; K57.31 Diverticulosis of large intestine without perforation or abscess with bleeding; J96.01 Acute respiratory failure with hypoxia; E87.1 Hypo-osmolality and hyponatremia; J81.1 Chronic pulmonary edema; I69.354 Hemiplegia and hemiparesis following cerebral infarction affecting left non-dominant side; J18.9 Pneumonia, unspecified organism; I11.0 Hypertensive heart disease with heart failure; E66.01 Morbid (severe) obesity due to excess calories; E87.70 Fluid overload, unspecified; E03.9 Hypothyroidism, unspecified; Z90.89 Acquired absence of other organs; Z98.890 Other specified postprocedural states; F03.90 Unspecified dementia, unspecified severity, without behavioral disturbance, psychotic disturbance, mood disturbance, and anxiety; E87.6 Hypokalemia; F17.210 Nicotine dependence, cigarettes, uncomplicated; Z68.37 Body mass index [BMI] 37.0-37.9, adult; E27.8 Other specified disorders of adrenal gland; Z99.81 Dependence on supplemental oxygen
CPT/HCPCS: 36415; 71045; 71275; 74177; 80048; 80053; 80202; 82533; 83690; 83735; 83880; 84484; 85025; 85379; 85610; 85730; 86850; 86900; 86901; 87081; 93005; 93306; 94640; 96374; 96375; J0692; J0744; J1940; J2470; J3370; J3475; J7030; J7050; J7620; P9047; Q0162; Q9967